=== PATIENT | female | born 1995 | race African-American/Black ===

== ENCOUNTER 2017-01-09 09:56 | Emergency (ER) | payer MEDICAID, OTHER ==
[~2017-01-09] VITALS: Ht 167.6 cm; Wt 101.0 kg
[2017-01-09] MEDS ORDERED: KETOROLAC 60MG/2ML VIAL IM ONE (11:00)
[2017-01-09 11:08] VITALS: BP 124/86
== END 2017-01-09 11:15 | disposition home or self-care (01) ==
LOC: ER 10:24
DX: S39.012A Strain of muscle, fascia and tendon of lower back, initial encounter (principal); M25.512 Pain in left shoulder; Z88.6 Allergy status to analgesic agent; Z79.899 Other long term (current) drug therapy; V43.52XA Car driver injured in collision with other type car in traffic accident, initial encounter; Y93.89 Activity, other specified; Y99.9 Unspecified external cause status; Y92.89 Other specified places as the place of occurrence of the external cause
CPT/HCPCS: 96372; 99283; J1885